=== PATIENT | female | born 1945 | race Two or more races ===

== ENCOUNTER → 2016-09-05 | Outpatient (CLI) | payer MEDICARE ==
[~2016-09-05] MED LIST: AMOX1TAB58 PO; ASPI81TA2 PO; CHOL500016 PO; FENO145T2 PO; INSU100I13 SQ; LOSA100T6 PO; MAGN500T PO; METF500T4 PO; OMEG1CAP2 PO; PANT40TA3 PO
--- NOTE | 2016-09-05 10:51 | RAD ---
Examination: Ultrasound abdomen complete History: History of abdominal pain. Comparison: None available Findings: The pancreas is obscured by bowel gas. The visualized IVC, aorta appears patent. There is increased echogenicity noted throughout the liver likely hepatic steatosis. No evidence of gallstones identified. The common bile duct measures 2.6 mm in transverse dimension. The liver measures 19.1 cm. The right kidney measures 9.8 x 5.0 x 4.5 cm. The left kidney measures 1.1 x 4.7 x 5.0 cm. The spleen measures 9 cm in length. Impression: 1. Mild hepatomegaly with hepatic steatosis. 2. No evidence of gallstones.
--- NOTE | 2016-09-05 11:24 | RAD ---
Examination: Ultrasound pelvis History: History of cervical cyst. Comparison: 09/07/2014 Technique: Transabdominal, transvaginal ultrasound of the visualized pelvis. Findings: The uterus measures 8.8 x 3.9 x 6.5 cm. The right ovary, left ovary could not be identified. No evidence of free fluid identified in the pelvis. The cervix appears prominent with a 6.3 x 4.3 x 6.3 cm echogenicity identified which grossly appears similar to prior exam possibly a known cervical mass. This is grossly unchanged compared to prior exam. There is a 1.7 cm hypoechogenicity within the mass as seen on prior exam. Impression: Soft tissue masslike echogenicity identified in the region of the cervix grossly similar to prior exam from 2015.
--- NOTE | 2016-09-05 12:59 | RAD ---
DATE: 09/05/2016 EXAM: DIGITAL SCREEN BILAT W/CAD HISTORY: Routine screening COMPARISON: 08/03/2014 This study was interpreted with the benefit of Computerized Aided Detection (CAD). FINDINGS: The breast parenchyma demonstrate heterogeneously dense breast tissue, category C which can obscure small masses.. There are no dominant suspicious masses, suspicious microcalcifications or evidence of architectural distortion. Benign-appearing ossifications identified in the bilateral breasts are similar to prior exam. IMPRESSION: Benign findings BI-RADS CATEGORY: 2 BENIGN FINDING RECOMMENDED FOLLOW-UP: 12M 12 MONTH FOLLOW-UP PQRS compliance statement: Patient information was entered into a reminder system with a target due date 09/05/2017 for the next mammogram. Mammography is a sensitive method for finding small breast cancers, but it does not detect them all and is not a substitute for careful clinical examination. A negative mammogram does not negate a clinically suspicious finding and should not result in delay in biopsying a clinically suspicious abnormality. "Our facility is accredited by the [employer] Mammography Program."
== END | disposition home or self-care (01) ==
LOC: US 08:47
PROVIDERS: ATTEND Internal Medicine
DX: Z12.31 Encounter for screening mammogram for malignant neoplasm of breast (principal); N88.8 Other specified noninflammatory disorders of cervix uteri; R10.9 Unspecified abdominal pain; Z79.899 Other long term (current) drug therapy
CPT/HCPCS: 76700; 76830; 76856; 82947; G0202; 77067

== ENCOUNTER 2017-03-08 12:22 | Emergency (ER) | payer MEDICARE ==
[~2017-03-08] VITALS: Ht 162.6 cm; Wt 65.8 kg
[~2017-03-08 12:22] MED LIST changes: +ASPI-630 PO; -ASPI81TA2 PO
--- NOTE | 2017-03-08 13:05 | RAD ---
Right ankle radiograph 03/08/2017 at 1245 hours Indication: Fall with ankle swelling. Comparison: None available Technique: 3 views of the right ankle are provided. Findings: There is a obliquely oriented fracture extending through the fibular metaphysis with extension to the ankle mortise. There is dorsal apex angulation. Additionally, there is a transversely oriented fracture involving the medial malleolus with extension to the ankle mortise. There is significant displacement. There is disruption of the ankle mortise. Talar dome appears intact. Plantar and posterior calcaneal these affect are present. Diffuse soft tissue swelling is noted. Impression: 1. Displaced transversely oriented fracture involving the medial malleolus with disruption of ankle mortise. 2.. Obliquely oriented, angulated distal fibular metaphyseal fracture.
[2017-03-08] MEDS ORDERED: HYDROmorphone 2 MG/ML VIAL ONE (14:03)
[2017-03-08] MEDS ORDERED: HYDROmorphone 2 MG/ML VIAL IV ONE (14:15)
--- NOTE | 2017-03-08 14:33 | RAD ---
Right ankle radiograph 03/08/2017 at 1420 hours Indication: Post reduction Comparison: Right ankle radiograph 03/08/2017 Technique: 2 views of the right ankle are provided. Findings: There is improved alignment of distal fibular and medial malleolar fractures. Fiberglass cast overlies the right ankle. Improved congruence of the ankle mortise. There is associated soft tissue swelling. Impression: Status post reduction of right ankle fractures with improved alignment and congruence of the ankle mortise.
--- NOTE | 2017-03-08 14:50 | PHYS DOC ---
Past Medical History Past Medical History: Cancer, Diabetes-Type II, Hypertension Past Surgical History: Other Additional Past Surgical Histo: BRAIN TUMOR RESECTION-PER FAMILY REPORT AT [facility] 2014 Alcohol Use: None Drug Use: None Adult General Chief Complaint Chief Complaint: MECHANICAL FALL HPI HPI Patient is a 71 year old female who presents with pain and swelling to the right ankle. The patient was at her son and [id number]'s house when she slipped on wet deck twisting her ankle and falling. She was immediately unable to bear weight on that ankle and they presented directly to the emergency department. She also did hit the top of her head. She denies loss of consciousness, changes in vision, nausea, headache or other injury. Review of Systems Review of Systems Constitutional: Denies fever or chills [] Respiratory: Denies cough or shortness of breath [] Cardiovascular: No additional information not addressed in HPI [] Musculoskeletal: See history of present illness Integument: Denies rash or skin lesions [] Neurologic: Denies headache, focal weakness or sensory changes [] Endocrine: Denies polyuria or polydipsia [] Current Medications Current Medications Current Medications Medications (Trade) Dose Ordered Sig/Sierra Start Time Stop Time Status Last Admin Dose Admin Hydromorphone HCl (Dilaudid) 2 mg STK-MED ONCE 03/08/17 14:03 03/08/17 14:04 DC Allergies Allergies Allergies Coded Allergies Type Severity Reaction Last Updated Verified No Known Drug Allergies 03/08/15 No Physical Exam Physical Exam Constitutional: Well developed, well nourished, no acute distress, non-toxic appearance. [] HENT: Normocephalic, bilateral external ears normal, oropharynx moist, no oral exudates, nose normal, patient does have slight tenderness to crown with palpation, no swelling, lacerations or ecchymosis noted. [] Eyes: PERRLA, EOMI, conjunctiva normal, no discharge. [] Neck: Normal range of motion, no tenderness, supple, no stridor. [] Cardiovascular:Heart rate regular rhythm, no murmur [] Lungs & Thorax: Bilateral breath sounds clear to auscultation [] Skin: Dime-sized abrasion to medial malleolus Back: No tenderness, no CVA tenderness. [] Extremities: Exquisite tenderness to right ankle, obvious deformity, range of motion decreased due to pain and deformity, pulses and sensation are intact distal to injury. Neurologic: Alert and oriented X 3, normal motor function, normal sensory function, no focal deficits noted. [] Psychologic: Affect normal, judgement normal, mood normal. [] Current Patient Data Vital Signs Vital Signs Date Time Temp Pulse Resp B/P (MAP) Pulse Ox O2 Delivery O2 Flow Rate FiO2 03/08/17 14:50 Nasal Cannula 2.0 03/08/17 13:53 58 22 99 03/08/17 12:42 98.9 162/67 (98) 98.9 EKG EKG [] Radiology/Procedures Radiology/Procedures [] PATIENT: CONSUELO WALTON ACCOUNT: [id number] : 1945 LOCATION: ER AGE: 71 SEX: F EXAM STATUS: PRE ER ORD. PHYSICIAN: NORMAN OLSEN APRN REASON: slipped and fell PROCEDURE: ANKLE RIGHT 3V Right ankle radiograph 03/08/2017 at 1245 hours Indication: Fall with ankle swelling. Comparison: None available Technique: 3 views of the right ankle are provided. Findings: There is a obliquely oriented fracture extending through the fibular metaphysis with extension to the ankle mortise. There is dorsal apex angulation. Additionally, there is a transversely oriented fracture involving the medial malleolus with extension to the ankle mortise. There is significant displacement. There is disruption of the ankle mortise. Talar dome appears intact. Plantar and posterior calcaneal these affect are present. Diffuse soft tissue swelling is noted. Impression: 1. Displaced transversely oriented fracture involving the medial malleolus with disruption of ankle mortise. 2.. Obliquely oriented, angulated distal fibular metaphyseal fracture. DICTATED and SIGNED BY: CRISSY VAZQUEZ MD DATE: 03/08/17 7555 CC: NORMAN OLSEN APRN; KARMEN GAUTHIER MD ~ Impressions: Dr. Sterling was consulted in the care of this patient. The patient had an IV established and 1.5 mg of Dilaudid were administered IV. The patient's leg was reduced with traction and a U-splint and posterior splint were applied while traction was being held. Post reduction imaging showed improved alignment and congruence of the ankle mortise. Postreduction and splinting the patient's neurovascular status was intact, the patient was able to wiggle her toes, pulses and sensation were intact and the foot was warm. The patient tolerated the procedure well. He has been instructed that the effected leg is nonweightbearing. She has an order for a wheelchair. They are to follow-up with Dr. Nielsen who was also consulted in the care of this patient for further evaluation and treatment of this fracture. PATIENT: CONSUELO WALTON ACCOUNT: [id number] : 1945 LOCATION: ER AGE: 71 SEX: F EXAM STATUS: REG ER ORD. PHYSICIAN: NON,STAFF REASON: Post reduction PROCEDURE: ANKLE RIGHT 2V Right ankle radiograph 03/08/2017 at 1420 hours Indication: Post reduction Comparison: Right ankle radiograph 03/08/2017 Technique: 2 views of the right ankle are provided. Findings: There is improved alignment of distal fibular and medial malleolar fractures. Fiberglass cast overlies the right ankle. Improved congruence of the ankle mortise. There is associated soft tissue swelling. Impression: Status post reduction of right ankle fractures with improved alignment and congruence of the ankle mortise. DICTATED and SIGNED BY: CRISSY VAZQUEZ MD DATE: 03/08/171428 CC: KARMEN GAUTHIER MD; NON,STAFF ~ Course & Med Decision Making Course & Med Decision Making Pertinent Labs and Imaging studies reviewed. (See chart for details) []1. Bimalleolar fracture of the right ankle 2. Contusion to scalp The patient has been instructed to be nonweightbearing. She was given Percocet for pain medication at home. She has been instructed not to operate heavy machinery or drive while taking this medication. The patient does have an order for a wheelchair. She is to follow up with Dr. Nielsen's office for further evaluation and treatment of this fracture. The patient is returned to the ED if worsening. The family was instructed on signs to watch for for potential head injury. If any of those signs develop she is to return to the ED immediately or call 911. Dragon Disclaimer Dragon Disclaimer This electronic medical record was generated, in whole or in part, using a voice recognition dictation system. Departure Departure Referrals: KARMEN GAUTHIER MD (PCP) Scripts Oxycodone/Apap 5-325 (PERCOCET 5-325 MG TABLET) 1 Each Tablet 1-2 TAB PO Q4-6HRS, #20 TAB Prov: NORMAN OLSEN APRN 03/08/17 NORMAN OLSEN APRN Mar 08, 2017 14:50
[2017-03-08] MEDS ORDERED: OXYC-323 PO (15:03)
[2017-03-08 15:23] VITALS: BP 170/69
[2017-03-12] MEDS ORDERED: LOSA100T6 PO (19:22)
[2017-03-12] MEDS ORDERED: ATOR20TA58 PO (19:26)
== END 2017-03-08 15:28 | disposition home or self-care (01) ==
LOC: ER 12:22
DX: S82.51XA Displaced fracture of medial malleolus of right tibia, initial encounter for closed fracture (principal); S89.391A Other physeal fracture of lower end of right fibula, initial encounter for closed fracture; S00.03XA Contusion of scalp, initial encounter; E11.9 Type 2 diabetes mellitus without complications; I10 Essential (primary) hypertension; W01.0XXA Fall on same level from slipping, tripping and stumbling without subsequent striking against object, initial encounter; Y93.89 Activity, other specified; Y92.009 Unspecified place in unspecified non-institutional (private) residence as the place of occurrence of the external cause; Y99.8 Other external cause status
CPT/HCPCS: 27762; 27788; 73600; 73610; 96374; 99284; J1170; 29515

== ENCOUNTER 2017-03-13 06:09 | Day surgery (SDC) | payer MEDICARE ==
[~2017-03-13] VITALS: Ht 162.6 cm; Wt 67.6 kg
[~2017-03-13 06:09] MED LIST changes: +ATOR20TA58 PO; +OXYC-323 PO
[2017-03-13] MEDS ORDERED: fentaNYL PF VIAL 100 MCG/2 ML VIAL ONE ×2 (06:40→09:59)
[2017-03-13] MEDS ORDERED: PROPOFOL 20 ML IV ONE (06:40)
[2017-03-13] MEDS ORDERED: DEXAMETHASONE SOD PHOS 20 MG/5 ML VIAL. ONE (06:40)
[2017-03-13] MEDS ORDERED: LIDOCAINE 2% PF Vial for OR 5 ML VIAL. ONE (06:40)
[2017-03-13] MEDS ORDERED: ONDANSETRON PF 4 MG/2 ML VIAL. ONE (06:40)
[2017-03-13] MEDS ORDERED: fentaNYL PF VIAL 100 MCG/2 ML VIAL IV PRN ×2 (07:00)
[2017-03-13] MEDS ORDERED: ONDANSETRON PF 4 MG/2 ML VIAL. IV PRN (07:00)
[2017-03-13] MEDS ORDERED: IV RINGERS,LACTATED 1000ML 1,000 ML IV SCH ×2 (07:00→07:30)
[2017-03-13] MEDS ORDERED: HYDROmorphone 2 MG/ML VIAL IV PRN (07:00)
[2017-03-13] MEDS ORDERED: PROCHLORPERAZINE 10 MG/2 ML VIAL. IV PRN (07:00)
[2017-03-13] MEDS ORDERED: LIDOCAINE 1% PF 2 ML VIAL. ID PRN (07:00)
--- NOTE | 2017-03-13 07:16 | DISCH ---
DISCHARGE INSTRUCTIONS Condition on Discharge Condition on Discharge: Stable Activity After Discharge Activity Instructions for Disc: Other, see below Bathing Instructions: Shower-keep dressing dry Weight Bearing Status after Di: Non weight bearing Diet after Discharge Diet after Discharge: Regular Wound Incision Care Wound/Incision Care: Ice to area for comfort, Keep wound/cast CDI, Keep wound elevated, Do not change dressing Contacting the DRConnor after DC Call your doctor for: Concerns you may have Follow-Up Follow up with: Morales or [facility] in 2wks JAYMIE HOLCOMB II, MD Mar 13, 2017 07:16
--- NOTE | 2017-03-13 07:17 | PDOC ---
BRIEF OPERATIVE NOTE Date: Mar 13, 2017 Pre-Op Diagnosis R ankle fx Post-Op Diagnosis same Procedure Performed ORIF R ankle Surgeon Surgeon Gas Welding Machine Operator Jayda Anesthesiologist Kenyon Anesthesia Type: General, Local Complications none JAYMIE HOLCOMB II, MD Mar 13, 2017 07:17
[2017-03-13] MEDS ORDERED: ceFAZolin 1GM IVPB FOR OMNI 1 GM/50 ML BAG IV ONE (07:25)
[2017-03-13] MEDS ORDERED: ePHEDrine PF IN SALINE 50 MG/5 ML DISP.SYRIN IV ONE (07:47)
[2017-03-13] MEDS ORDERED: BUPIVACAINE MPF 0.5% 30 ML VIAL. ONE (07:54)
[2017-03-13] MEDS ORDERED: LIDOCAINE 1% 20 ML VIAL. ONE (07:54)
[2017-03-13] MEDS ORDERED: SEVOFLURANE 61 TO 120 MINUTES. IH ONE (08:36)
[2017-03-13] MEDS ORDERED: INSULIN ASPART 100 UNIT/ML 10ML VIAL. SQ ONE (09:16)
[2017-03-13] MEDS ORDERED: MORPHINE SULFATE 2 MG/ML DISP.SYRIN. ONE (09:21)
[2017-03-13] MEDS: MORPHINE SULFATE 2 MG/ML DISP.SYRIN. IV PRN ×2 (09:24→09:35)
[2017-03-13] MEDS ORDERED: INSULIN REGULAR 100 UNIT/ML 10ML VIAL. IV SCH (09:45)
--- NOTE | 2017-03-13 09:59 | OP ---
DATE OF SURGERY: 03/13/2017 SURGEON: Kemar Holcomb MD LABEL MACHINE OPERATOR: Jennifer Montelogno. ANESTHESIA: General. PREOPERATIVE DIAGNOSIS: Closed right displaced bimalleolar ankle fracture and dislocation. POSTOPERATIVE DIAGNOSIS: Closed right displaced bimalleolar ankle fracture and dislocation. PROCEDURE PERFORMED: Open reduction and internal fixation of right bimalleolar ankle fracture and dislocation. COMPONENTS INSERTED: [employer]hew 6-hole locking distal fibula plate with 2 cannulated screws for medial malleolus. ESTIMATED BLOOD LOSS: 25 mL. TOURNIQUET TIME: . COMPLICATIONS: None. REASON FOR PROCEDURE: The patient is a very pleasant 71-year-old female who had a twisting injury to her right ankle that was seen in our Emergency Department where she underwent closed reduction and splinting and referred to my clinic for definitive management. Clinical and radiographic examinations were consistent with the above preoperative diagnosis and after discussion of the risks, benefits, alternatives, she elected to proceed with surgery. DESCRIPTION OF PROCEDURE: The patient was greeted in the preoperative area by myself. The correct extremity was marked and verified. She was taken to the operative suite and antibiotics were started en route. Once in the OR, transferred gently supine to the OR table and secured to the bed. She had successful induction of general anesthetic. We then placed a large bump under her hip and a nonsterile tourniquet was taped in place to her right lower extremity. We then proceeded to prep and drape the lower extremity in our usual sterile fashion and used Coban at her toes. The extremity was exsanguinated with an Esmarch and the tourniquet insufflated to 250 mmHg. After this, I palpated and marked the surface anatomy, made a straight incision over her distal fibular and dissected the subcutaneous tissue with electrocautery and Perry. I identified the fracture site and used a combination of dental pick metal tip suction as well as rongeur to debride the fracture site. There was some comminution over her distal fibular metaphyseal region. I used [id number] direct pressure as well as medially directed force at her calcaneus to achieve good reduction of her distal fibula and secure it in place. I confirmed appropriate reduction on AP, lateral and oblique fluoroscopy. I then provisionally sized my plate and after I had a good position, I then placed three 3.5 nonlocking screws to secure the plate to the shaft. I then placed another one distal to the fracture site and then filled the remainder of the holes distally with 2.7 mm locking screws. I secured the plate proximal to the fracture site with 2 more nonlocking screws. I then directed my attention to her medial malleolus and palpated, marked for this and made a curvilinear incision centered over the fracture site. I incised the skin with the scalpel and dissected the subcutaneous tissue with electrocautery until I encountered the fracture site. I pulled distraction of the fracture site with a dental pick and used a metal tip sucker and a rongeur to debride the fracture site. After this, I used a dental pick and eversion at her hindfoot to help achieve a good reduction, confirmed under triplanar fluoroscopy. I then advanced 2 guidewires, again using fluoroscopic guidance. I then measured and drilled the near cortex for these screws and then placed the screws in her medial malleolus. I then confirmed fracture reduction and hardware position with C-arm. I then performed an external rotation stress test, which was negative. The wounds were then irrigated out with sterile normal saline. Fascia was closed laterally with simple interrupted 0 Vicryl. Inverted interrupted 2-0 was used in the subcutaneous tissue at medial and lateral incisions and 2-0 nylon in a mattress fashion was used to close skin. We then injected local anesthetic mixture around the fracture sites. After this, the leg was cleansed and dried and a sterile dressing was applied followed by an AO splint. She tolerated the surgery well. No complications. Prior to completion of wound closure, all counts were reported correct x 2. At the conclusion of surgery, she was awakened from anesthesia, transferred gently supine to the recovery room cart and taken to PACU in stable and extubated condition. POSTOPERATIVE PLAN: To discharge her home today under the care of her family. She will be nonweightbearing right lower extremity for 6 weeks. I will see her back in my clinic in 2 weeks, sooner should her problems arise. KEMAR HOLCOMB MD DR: ISAURO/avril JOB#: [id number] / [id number] HIMA
[2017-03-13] MEDS ORDERED: oxyCODONE/APAP 5/325 1 TAB TABLET PO PRN (10:15)
[2017-03-13] MEDS ORDERED: INSULIN REGULAR 100 UNIT/ML 10ML VIAL. IV PRN (10:15)
[2017-03-13 10:23] VITALS: BP 166/69
== END 2017-03-13 10:45 | disposition home or self-care (01) ==
LOC: SURG 06:09
PROVIDERS: ATTEND Orthopaedic Surgery Sports Medicine
DX: S82.841A Displaced bimalleolar fracture of right lower leg, initial encounter for closed fracture (principal); X58.XXXA Exposure to other specified factors, initial encounter; Y93.89 Activity, other specified; Y92.89 Other specified places as the place of occurrence of the external cause; Y99.8 Other external cause status; I10 Essential (primary) hypertension; E11.9 Type 2 diabetes mellitus without complications; Z87.39 Personal history of other diseases of the musculoskeletal system and connective tissue
CPT/HCPCS: 27814; 76000; 82962; A4215; J0690; J1100; J2270; J2405; J2704; J3010; J3490; J1815; J2001